=== PATIENT | male | born 1950 | race Caucasian/White ===

== ENCOUNTER 2018-09-13 05:56 | Day surgery (SDC) | payer OTHER, MEDICARE ==
[2018-09-06 10:09] VITALS: BMI 29.7
[2018-09-13] MEDS ORDERED: EPINEPHrine 1:1,000 1 MG/1 ML - 30ML VIAL (INJECTION) ONE (07:07)
[2018-09-13] MEDS ORDERED: DEXMEDETOMIDINE HCL 200 MCG/2 ML IVPB ONE (07:16)
[2018-09-13] MEDS ORDERED: DEXAMETHASONE SOD PHOSPHATE/PF 10 MG/ML SDV ONE (07:17)
[2018-09-13] MEDS ORDERED: ROPIVACAINE HCL 0.5% 30ML VIAL ONE (07:17)
[2018-09-13] MEDS ORDERED: MIDAZOLAM HCL 2 MG/2 ML SINGLE DOSE VIAL ONE ×2 (07:17→08:07)
[2018-09-13] MEDS ORDERED: PROPOFOL 20 ML ONE (08:06)
[2018-09-13] MEDS ORDERED: SUCCINYLCHOLINE CHLORIDE 200 MG/10 ML VIAL ONE (08:06)
[2018-09-13] MEDS ORDERED: oxyCODONE HCL 5 MG TABLET PO PRN ×2 (09:43)
[2018-09-13] MEDS ORDERED: PROMETHAZINE HCL 25 MG/1 ML VIAL IVPUSH PRN (09:43)
[2018-09-13] MEDS ORDERED: ONDANSETRON 4 MG/2 ML VIAL IVPUSH PRN (09:43)
[2018-09-13 10:42] LABS: HEMATOCRIT 32.9 % (35.4-49); HEMOGLOBIN 11.3 GM/dl (11.7-16.9); MCH 33.3 pg (25.7-33.7); MCHC 34.2 g/dl (32.0-35.9); MEAN CELL VOLUME 97.2 fl (80-96); MEAN PLT VOLUME 6.8 fl (7.5-11.1); PLATELET COUNT 203 K/MM3 (134-434); RBC 3.38 M/mm3 (4.00-5.60); RDW 12.5 % (11.9-15.9); WHITE BLOOD COUNT 6.7 K/mm3 (4.0-10.8)
[2018-09-13 10:55] LABS: INR 1.16 (0.82-1.09)
[2018-09-13 11:03] LABS: ALBUMIN 3.6 g/dl (3.5-5.0); ALK PHOS 84 U/L (32-92); ANION GAP 6 MMOL/L (8-16); BILIRUBIN,TOTAL 0.5 mg/dl (0.2-1.0); BLOOD UREA NITROGEN 17 mg/dl (7-18); CALCIUM 8.1 mg/dl (8.4-10.2); CHLORIDE 102 mmol/L (98-107); CO2 27 mmol/L (22-28); CREATININE 0.9 mg/dl (0.6-1.3); GLUCOSE,RANDOM 158 mg/dl (74-106); POTASSIUM 3.6 mmol/L (3.5-5.1); SGOT/AST 67 U/L (10-42); SGPT/ALT 55 U/L (10-40); SODIUM 135 mmol/L (136-145); TOT PROT 6.1 g/dl (6.4-8.3)
--- NOTE | 2018-09-13 11:57 | OP ---
DATE OF OPERATION: 09/13/2018 LOCATION OF SERVICE: [facility] SURGEON: Cruz Church MD POLITICAL ANALYST: IRVIN Castro LOCATION: [facility] SURGEON: Cruz Church MD POLITICAL ANALYST: IRVIN Castro POSTOPERATIVE DIAGNOSES: 1. Left shoulder rotator cuff tear. 2. Left shoulder biceps tendon tear, long head. 3. Left shoulder adhesive capsulitis. 4. Left shoulder impingement. 5. Left shoulder acromioclavicular joint disease. 6. Left shoulder superior labral tear. 7. Anterior and posterior synovitis. POSTOPERATIVE DIAGNOSES: 1. Left shoulder rotator cuff tear. 2. Left shoulder biceps tendon tear, long head. 3. Left shoulder adhesive capsulitis. 4. Left shoulder impingement. 5. Left shoulder acromioclavicular joint disease. 6. Left shoulder superior labral tear. 7. Anterior and posterior synovitis. PROCEDURE: 1. Left shoulder arthroscopy with arthroscopic rotator cuff repair. CPT code 01427. 2. Left shoulder arthroscopy with biceps tenodesis. CPT code 28598. 3. Left shoulder arthroscopy with lysis and resection of adhesions. CPT code 62183. 4. Left shoulder arthroscopy with subacromial decompression. CPT code 98357. 5. Left shoulder arthroscopy with resection of distal clavicle, acromioclavicular joint. CPT code 96148. 6. Left shoulder arthroscopy with debridement. CPT code 61238. FINDINGS: 1. Extensive full thickness tear supraspinatus and infraspinatus. 2. Biceps tear with dislocation of the biceps groove. 3. Glenohumeral synovitis. 4. Type 4 superior labral tear, anterior and posterior, with extension to biceps tendon. 5. Anterior labral fraying. 6. Thickened scar tissue and synovitis and adhesions in glenohumeral joint. 7. Diffuse grade 2-3 cartilage, eccentric glenoid and humerus. 8. Type 3 acromnion with anterior spurring. 9. Inferior spurs, distal clavicle, with acromioclavicular degenerative joint disease. 10. Thickened scar tissue, subacromial space, with adhesions and scar tissue most pronounced anteriorly and laterally. REPAIR TYPE: Biceps tendon was released, and tenodesis was performed securing it to the greater tuberosity. This was done with approximately 6 cm from the distal portion. The remaining portion of the biceps was incorporated into the rotator cuff repair, sewn to the supraspinatus, and secured to the bleeding tuberosity. Three sutures were placed through the supraspinatus and infraspinatus complex. This was brought centrally and down to a bleeding bone bed on the greater tuberosity using the Opus mattress sutures and Opus anchors. The biceps tendon tissue was sewn into the supraspinatus, and all was secured to a bleeding bone bed. PROCEDURE: Informed consent was obtained. The patient was taken to the operating room, where the upper extremity was prepped and draped in a sterile fashion. The shoulder was manipulated for a full range of motion. A posterior incision portal was made and directed to the glenohumeral joint. Under direct visualization, an anterior incision and portal was made. Extensive synovitis, as well as chondral injuries throughout the glenohumeral joint, were debrided and removed. Any identified labral injuries, including the superior labral tear, anterior and posterior, and anterior labrum torn portions, were removed as well. The rotator cuff was visualized and noted to have a full-thickness tear. The edges were debrided. The posterior incision portal was redirected to the subacromial space where a lateral incision portal was made. Excessive and thickened scar tissue noted throughout the subacromial space, including bursal and scar tissue, were removed. The type 2 acromion was converted into a flattened type 1 using a bur for subacromial decompression. The distal inferior spur at the distal clavicle was also debrided with the use of an accessory portal in the acromioclavicular joint. The edges of the rotator cuff were identified. Sutures were placed into the rotator cuff and secured using anchors through the greater tuberosity. Prior to securing, a bleeding bed was made using a small bur, creating a bleeding surface of the rotator cuff insertion. The shoulder was then drained, a single suture was placed in all portals, a sterile dressing was placed, and the patient was transferred to the recovery room without complication. Sandeep Gaytan served as physician executive personal assistant during this procedure and assisted with the surgical case. His assistance was medically necessary for passage of instruments, placements of implants, and use of the camera. Without his assistance, the case could not have been performed. CRUZ CHURCH M.D. [id number]
--- NOTE | 2018-09-13 13:38 | CON.CARD ---
Consult Consult Specialty:: Cardiology Referred by:: Rissa Reason for Consultation:: atrial fibrillation - History of Present Illness Chief Complaint: shoulder surgery History of Present Illness: 67M h/o CAD, PAD, s/p CABG 1994, RCA vein graft angioplasty in 2003, 2007 and 2010, s/p ELMA to LCx 05/2017, s/p peripheral artery stent for claudication with elective L rotator cuff repair today now with post operative afib. No prior hx afib. . Sees Dr. Joseph for cardio, had recent preop visit. 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 Underwent surgery today for L rotator cuff with block and IV sedation, post operatively noted to be in atrial fibrillation with rate 70s. No chest pain, palps, dizziness, lightheadedness currently and is on atenolol at home. - Past Medical History Cardio/Vascular: Yes: CAD - Alcohol/Substance Use Hx Alcohol Use: Yes (RARELY) - Smoking History Smoking history: Former smoker Have you smoked in the past 12 months: No Aproximately how many cigarettes per day: 30 If you are a former smoker, when did you quit?: 2010 Home Medications - Allergies Allergies/Adverse Reactions: Allergies Allergy/AdvReac Type Severity Reaction Status Date / Time ANESTHESIA DURING STENT Allergy Intermediate Hives Uncoded 09/06/18 10:10 PROCEDURE - Home Medications Home Medications: Ambulatory Orders Allopurinol 300 mg PO DAILY 09/06/18 Amlodipine Besylate 5 mg PO DAILY 09/06/18 Armodafinil 250 mg PO DAILY 09/06/18 Aspirin Coated [Ecotrin -] 81 mg PO DAILY 09/06/18 Atenolol [Tenormin -] 50 mg PO DAILY 09/06/18 Buprenorphine [Butrans 15 MCG/HR] 10 mcg TD WEEKLY 09/06/18 Bupropion HCl [Wellbutrin Xl] 300 mg PO DAILY 09/06/18 Clopidogrel Bisulfate [Plavix] 75 mg PO HS 09/06/18 Diazepam [Valium] 5 mg PO HS 09/06/18 Ezetimibe/Simvastatin [Vytorin 10-80 mg Tablet] 1 tab PO HS 09/06/18 Famotidine [Pepcid -] 20 mg PO HS 09/06/18 Furosemide [Lasix] 60 mg PO DAILY 09/06/18 Hydrocodone/Acetaminophen [Hydrocodone-Acetamin 10-325 mg] 1 tab PO Q6H [place]-3 Acid Ethyl Esters [Lovaza] 2 tab PO BID 09/06/18 Oxcarbazepine [Trileptal] 150 mg PO AM 09/06/18 Oxcarbazepine [Trileptal] 300 mg PO BID 09/06/18 Ramipril 5 mg PO DAILY 09/06/18 Tamsulosin HCl 0.4 mg PO HS 09/06/18 Budesonide/Formeterol Fumarate [SYMBICORT 160/4.5mcg -] 2 inh IH BID 09/12/18 Cholecalciferol (Vitamin D3) [Vitamin D] 2,000 unit PO DAILY 09/12/18 Cyanocobalamin (Vitamin B-12) [Vitamin B12] 5,000 mcg PO DAILY 09/12/18 L.acidoph,Paracasei, B.lactis [Probiotic] 2 each PO DAILY 09/12/18 Multivitamins [Tab-A-Vit -] 1 tab PO DAILY 09/12/18 Ubidecarenone [Coq-10] 200 mg PO DAILY 09/12/18 Family Disease History - Family Disease History Family History: Unremarkable Review of Systems - Review of Systems Constitutional: reports: No Symptoms Eyes: reports: No Symptoms HENT: reports: No Symptoms Neck: reports: No Symptoms Cardiovascular: reports: No Symptoms Respiratory: reports: No Symptoms Gastrointestinal: reports: No Symptoms Genitourinary: reports: No Symptoms Musculoskeletal: reports: No Symptoms Integumentary: reports: No Symptoms Neurological: reports: No Symptoms Endocrine: reports: No Symptoms Hematology/Lymphatic: reports: No Symptoms Psychiatric: reports: No Symptoms Vital Signs: Vital Signs Temperature 97.7 F 09/13/18 09:34 Pulse Rate 63 09/13/18 12:10 Respiratory Rate 20 09/13/18 12:10 Blood Pressure 114/67 09/13/18 12:10 O2 Sat by Pulse Oximetry (%) 96 09/13/18 12:10 Constitutional: Yes: Well Nourished, No Distress, Calm, Poor Hygeine Eyes: Yes: Conjunctiva Clear, EOM Intact HENT: Yes: Atraumatic, Normocephalic Neck: Yes: Supple, Trachea Midline Respiratory: Yes: Regular, CTA Bilaterally Gastrointestinal: Yes: Normal Bowel Sounds, Soft Cardiovascular: Yes: Pulse Irregular JVD: No Carotid Bruit: No PMI: Non-Displaced Heart Sounds: Yes: S1, S2 Musculoskeletal: No: Back Pain Extremities: No: Cold Edema: No Peripheral Pulses WNL: No Peripheral Pulses: 1+ Left Doralis Pedis, 1+ Right Dorsalis Pedis Neurological: Yes: Alert, Oriented Psychiatric: Yes: Alert, Oriented - Other Data Labs, Other Data: CBC, BMP 09/13/18 10:31 09/13/18 10:40 INR, PTT INR 1.16 (0.82-1.09) 09/13/18 10:40 Troponin, BNP 09/13/18 10:40 Troponin I < 0.03 Troponin, BNP 09/13/18 10:40 Troponin I < 0.03 Assessment/Plan EKG atrial fibrillation, rate 74 bpm, no ST changes atrial fibrillation - rate controlled on atenolol, continue - would defer anticoagulation at this point, as afib is post op, may convert - discussed with Dr. 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
[2018-09-13 15:34] VITALS: BP 102/49; PULSE 78; TEMP 98.1
--- NOTE | 2018-09-13 20:16 | EKG ---
Test Reason : Blood Pressure : / mmHG Vent. Rate : 074 BPM Atrial Rate : 357 BPM P-R Int : 000 ms QRS Dur : 082 ms QT Int : 382 ms P-R-T Axes : 000 014 071 degrees QTc Int : 424 ms ATRIAL FIBRILLATION POSSIBLE ANTERIOR INFARCT , AGE UNDETERMINED ABNORMAL ECG NO PREVIOUS ECGS AVAILABLE Confirmed by JUANA GAFFNEY, PEPITO ([id number]) on 09/13/2018 8:16:13 PM Referred By: Cruz Kwok Confirmed By:PEPITO ARIAS MD
== END 2018-09-13 15:15 | disposition home or self-care (01) ==
LOC: FASU 05:56
PROVIDERS: ATTEND Orthopaedic Surgery
PROC: 0LS24ZZ Reposition Left Shoulder Tendon, Percutaneous Endoscopic Approach (ICD-10-PCS; 2018-09-13)
PROC: 0RNK4ZZ Release Left Shoulder Joint, Percutaneous Endoscopic Approach (ICD-10-PCS; 2018-09-13)
PROC: 0PBB4ZZ Excision of Left Clavicle, Percutaneous Endoscopic Approach (ICD-10-PCS; 2018-09-13)
PROC: 0RBK4ZZ Excision of Left Shoulder Joint, Percutaneous Endoscopic Approach (ICD-10-PCS; 2018-09-13)
PROC: 0LQ24ZZ Repair Left Shoulder Tendon, Percutaneous Endoscopic Approach (ICD-10-PCS; principal; 2018-09-13 07:30)
DX: M75.122 Complete rotator cuff tear or rupture of left shoulder, not specified as traumatic (principal); M66.822 Spontaneous rupture of other tendons, left upper arm; M75.02 Adhesive capsulitis of left shoulder; M75.42 Impingement syndrome of left shoulder; M19.019 Primary osteoarthritis, unspecified shoulder; M24.112 Other articular cartilage disorders, left shoulder; M65.812 Other synovitis and tenosynovitis, left shoulder
CPT/HCPCS: 36415; 80053; 82550; 82553; 84484; 85027; 85610; 93005; 94760